=== PATIENT | female | born 2005 | race Caucasian/White ===

== ENCOUNTER 2023-10-17 13:16 | Outpatient (CLI) | payer BC | END 2023-10-17 13:17 | disposition home or self-care (01) | LOC: SCSRAD 13:16 | PROVIDERS: ATTEND Podiatrist | DX: S92.244A Nondisplaced fracture of medial cuneiform of right foot, initial encounter for closed fracture (principal); M79.671 Pain in right foot; S92.211A Displaced fracture of cuboid bone of right foot, initial encounter for closed fracture ==